=== PATIENT | male | born 1990 | race Asian ===

== ENCOUNTER 2018-05-24 22:09 | Emergency (ER) | payer SELFPAY ==
[~2018-05-24] VITALS: Ht 167.6 cm; Wt 96.6 kg
[2018-05-24 22:22] VITALS: TEMP 36.8; Ht 167.6 cm; Wt 96.6 kg
[2018-05-24] MEDS ORDERED: LIDOCAINE 1% BUFFERED INJ 20 ML VIAL INFIL ONE (23:15)
--- NOTE | 2018-05-24 23:43 | DIAGNOSTIC IMAGING REPORT ---
RIGHT HAND 3 VIEWS CLINICAL HISTORY: Right hand punching injury. FINDINGS: 3 views of the right hand are obtained. No prior studies are available for comparison at the time of dictation. The skeletal structures are well mineralized. No fracture is seen. The joint spaces of the hand are maintained. Dorsal soft tissue swelling is noted. IMPRESSION: Dorsal soft tissue swelling with no radiographic evidence of acute fracture. Consider short-term radiographic follow-up if there is clinical concern for occult fracture. Electronically signed by: David Badillo M.D. 05/24/2018 11:42 PM Dictated Date/Time: 05/24/2018 11:40 PM
[2018-05-25 01:24] VITALS: BP 163/88; PULSE 83; O2SAT 98
--- NOTE | 2018-05-30 14:12 | EMERGENCY ROOM VISIT NOTE ---
ED Visit Note First contact with patient: 22:59 Chief Complaint: I cut my right hand. History of Present Illness: Mr. Simms is a 27-year-old male who ambulates into the ED complaining of a right hand laceration. Historically patient has a history of schizophrenia and psychosis. He was transferred from the [facility] after he punched a fire alarm this evening and sustained a laceration to the right hand. Patient is complaining of a stinging and throbbing pain in the area of the fourth and fifth MCP joints of the right hand. He rates his discomfort 5/10. His pain is nonradiating. His pain worsens with palpation and extension of the fourth and fifth MCP joint. He has not identified any alleviating factors related to the pain. He reports he did not be given any medication prior to arrival at the hospital. He denies any associated forearm pain, wrist pain, other hand pain, other finger pain, finger weakness/numbness/tingling. Review of Systems: As noted above in history of present illness. Past Medical History: As previously noted. Current Medications: None reported. Allergies to Medications: Patient denies. Social History: Patient is not currently employed; is currently institutionalized for his schizophrenia. He denies tobacco use. Tetanus Immunization Status: Patient reports up-to-date. Physical Examination: Vital Signs: Date Time Temp Pulse Resp B/P (MAP) Pulse Ox O2 Delivery O2 Flow Rate FiO2 05/25/18 01:24 83 22 163/88 98 05/25/18 00:57 83 22 163/88 98 Room Air 05/24/18 22:22 36.8 89 18 144/90 97 Room Air GENERAL: 27-year-old male in no acute distress, nontoxic-appearing, afebrile and hemodynamically stable. NEUROLOGICAL: Awake, alert and oriented to person, place and time. Answering questions appropriately and following commands. Normal gait. Good hand eye coordination. SKIN: Warm, dry and pink. Right Hand: Over the dorsal aspect of the hand patient actually has 2 lacerations. There is a laceration over the distal aspect of the distal femoral necks of the little finger; this is full-thickness and measures approximately 4.1 cm. Just superior to that he has a second full- thickness laceration that measures approximately 3.2 cm and extends into the webbing between the ring and little fingers. RIGHT HAND: No gross bony deformity. Soft tissue injuries as noted above under skin. Wounds are not actively bleeding. Moderate tenderness over the fourth and fifth MCP joints and the distal aspect of the fourth and fifth proximal phalanxes. I do not appreciate any bony deformity or crepitus. He does have pain with extension of the fourth and fifth MCP joint. Throughout the rest of the fingers the skin was warm and pink and capillary refill was brisk. He did have full range of motion against resistance of the MCP, PIP and DIP joints. There was exposure of the fourth extensor tendon but I did not visualize any injury to the tendon. Throughout the fingers the skin was warm and pink and capillary refill was brisk. He was able to distinguish light sensations to all dermatomes. ED Course: Patient is assessed as noted above. Patient's medication list was reviewed. Patient was offered pain medication and refused. Right Hand X-Rays: Were read by myself and radiology showing no acute fractures or dislocations. Moderate dorsal soft tissue swelling was noted. Wound Repair: Complexity: Basic Verbal consent was obtained after the risks and benefits were explained. The skin was prepped with betadine and a sterile field set. Wound edges of the wounds were anesthetized with total 4.2 ml buffered 1% lidocaine. The wounds were explored for foreign bodies and none found. Copious irrigation was performed using sterile saline. With direct pressure the bleeding subsided. Debridement was not performed. The wound edges were approximated using 5-0 Ethilon with a total of 7 simple interrupted sutures. Hemostasis and excellent approximation was achieved. Antibacterial ointment and a sterile dressing applied. The ring and little fingers were splinted in position of function. No complications and the patient tolerated the procedure well. Patient was educated about tonight's findings and instructed on his treatment plan; he verbalizes understanding and agreement with this plan. Clinical Impression: Lacerations of the right hand. Disposition: Patient discharged home in stable condition; prior to departure he was reassessed and subjectively reported pain-free. Plan: Comfort measures, wound care and signs of infection were discussed with the patient and recommendations were given to the medical. Patient was prescribed Keflex 500 mg 4 times a day for 7 days. It was encouraged that the patient have a follow-up with the hand specialist due to exposure of the tendon. It was encouraged that the patient have a suture removal in 10-12 days. Was encouraged with the patient we be return to the emergency department for any signs of infection or any new/concerning symptoms.
== END 2018-05-25 01:24 | disposition home or self-care (01) ==
LOC: C.EDB 22:11 → C.EDA 05-25 01:24
DX: S61.411A Laceration without foreign body of right hand, initial encounter (principal); W22.8XXA Striking against or struck by other objects, initial encounter; Y92.239 Unspecified place in hospital as the place of occurrence of the external cause; F20.9 Schizophrenia, unspecified